=== PATIENT | male | born 1965 | race Hispanic/Latino ===

== ENCOUNTER → 2018-07-29 | Day surgery (SDC) | payer OTHER ==
[~2018-07-29] MED LIST: ASPIR 8181 MG PO; FENTANYL CITRATE/PF 100MCG/2 ML INJ ONE; LIDOCAINE HCL 2% LOCAL INJ 5 ML SDV VIAL INJ ONE; LISINOPRIL2.5 MG PO; METAMUCIL FIBE3.4 GM PO; MIDAZOLAM HCL 2 MG/2 ML VIAL ONE; PROPOFOL IV EMULSION 10 MG/ML 50 ML VIAL ONE
--- OUTSIDE RECORDS SUMMARY | 2018-07-29 06:39 | XMS REPORT | Summary of Care ---
Author Author Teofilo Love M.A. Organization Unknown Address [facility] Phone Unavailable Care Team Providers Care Human Resource Analyst Name Role Phone Teofilo Love M.A. Unavailable Unavailable YEH D.JESSE Dean Unavailable Unavailable Unavailable Unavailable Functional Status Name Dates Details Functional status health issues are not documented Status: Name Dates Details Cognitive status health issues are not documented Status: Problems Name Dates Details Psoriasis (696.1, L40.9) Status: Active Arthralgia of multiple sites (719.49, M25.50) Status: Active Medications Name Dates Details Lisinopril 5 MG Oral Tablet TAKE 1 TABLET DAILY. * Start : 10-Mar-2018 Active 30 Tablet Bottle Aspirin 81 MG Oral Tablet Delayed Release TAKE 1 TABLET DAILY. * Refills: 0 * Start : 10-Mar-2018 Active Betamethasone Dipropionate 0.05 % External Lotion APPLY SPARINGLY TO AFFECTED AREA(S) TWICE DAILY * Quantity: 1 Refills: 3 YEH D.O., MIGNON-AUNDREA * Start : 10-Mar-2018 Active 60 ML Bottle Allergies and Adverse Reactions Name Dates Details No Known Allergies (Allergy) Status: Active Past Medical History Name Dates Details History of hypertension (V12.59, Z86.79) Status: Resolved Procedures Procedure Dates Details XRAY Hand AP lateral oblique Bilateral [id number] Date: 10-Mar-2018 History of Kidney surgery Completed History of Shoulder surgery Completed History of Knee replacement Completed Immunization Name Dates Details Immunizations not documented Family History Name Dates Details Family history of hypertension (V17.49, Z82.49) Status: Active Name Dates Details Family history of Alzheimer's disease (V17.2, Z82.0) Status: Active Social History Name Dates Details - Status: Name Dates Details Former smoker Vital Signs Date Test Result Details [id number] BP Systolic 121 mm[Hg] Status: Comments: Location: LUE; Position: Sitting BP Diastolic 78 mm[Hg] Status: Comments: Location: LUE; Position: Sitting Height 65 in Status: Weight 255 lb Status: Body Mass Index Calculated 42.43 kg/m2 Status: Body Surface Area Calculated 2.19 m2 Status: Temperature 97.8 f Status: Comments: Method: Temporal Respiration Rate 16 /min Status: Heart Rate 77 /min Status: :16 Physical Findings 4 Status: Comments: PHQ-9 Adult Depression Screening Results Date Description Value Details :05 [[facility]] CBC (INCLUDES DIFF/PLT) WBC 8.4 {K/CMM} Range: 3.7-10.4 RBC 5.06 {M/CMM} Range: 4.70-6.10 Hgb 15.0 g/dl Range: 14.0-18.0 Hct 43.2 % Range: 42.0-54.0 MCV 85.5 fL Range: 80.0-94.0 MCH 29.6 pg Range: 27.0-31.0 MCHC 34.7 g/dl Range: 32.0-36.0 RDW 13.6 % Range: 11.5-14.5 Platelet 302 {K/CMM} Range: 133-450 Mean Platelet Volume 8.8 fL Range: 7.4-10.4 :05 [QL] CMP W/EGFR Sodium Level 138 {mEq/l} Range: 135-145 Potassium Level 4.7 {mEq/l} Range: 3.5-5.1 Chloride Level 103 {mEq/l} Range: 95-109 Carbon Dioxide 26 {mEq/l} Range: 24-32 AGAP 13.7 {mEq/l} Range: 10.0-20.0 Glucose Lvl 102 mg/dl (Above high threshold) Range: 70-99 Comments: Adult reference range values reflect the clinical guidelinesof the [place] [employer]. Creatinine Lvl 0.90 mg/dl Range: 0.50-1.40 Blood Urea Nitrogen 16 mg/dl Range: 7-22 BUN/Creatinine Ratio 18 Range: 6-25 Total Protein 7.4 g/dl Range: 6.4-8.4 Albumin Lvl 3.7 g/dl Range: 3.5-5.0 Globulin 3.7 g/dl Range: 2.7-4.2 A/G Ratio 1.0 Range: 0.7-1.6 Calcium Level Total 9.1 mg/dl Range: 8.5-10.5 ALT 44 u/l Range: 0-65 AST 24 u/l Range: 0-37 Alk Phos 119 u/l Range: 39-136 Bili Total 0.3 mg/dl Range: 0.2-1.3 eGFR 99 {ML/MIN/1.7} Comments: The eGFR is calculated using the CKD-EPI formula. In most young, healthyindividuals the eGFR will be >90 mL/min/1.73m2. The eGFR declines with age. AneGFR of 60-89 may be normal in some populations, particularly the elderly, forwhom the CKD-EPI formula has not been extensively validated. Use of the eGFR isnot recommended in the following populations:Individuals with unstable creatinine concentrations, including patients and those with serious co-morbid conditions.Patients with extremes in muscle mass or diet.The data above are obtained from the National Kidney Disease Education Program(NKDEP) which additionally recommends that when the eGFR is used in patientswith extremes of body mass index for purposes of drug dosing, the eGFR shouldbe multiplied by the estimated BMI. [QL] TSH, 3RD GENERATION W/REFLEX TO FT4 TSH 1.260 {uIU/ml} Range: 0.360-3.740 [QL] C-REACTIVE PROTEIN CRP 4.6 mg/L (Above high threshold) Range: <=2.9 [H] LIPID PANEL WITH REFLEX TO DIRECT LDL Chol 219 mg/dl (Above high threshold) Range: <=199 Trig 130 mg/dl Range: <=149 HDL Cholesterol 42 mg/dl (Below low threshold) Range: >=61 CHD Risk 5.21 Range: 4.00-7.30 LDL 151 mg/dl (Above high threshold) Range: <=99 VLDL 26 [QL] SED RATE BY MODIFIED [place]GR[place] Sedimentation Rate 8 {mm/hr} Range: 0-15 [QL] Differential Segmented Neutrophils 52.4 % Range: 45.0-75.0 Monocytes 7.4 % Range: 2.0-12.0 Lymphocytes 32.8 % Range: 20.0-40.0 Eosinophils 6.4 % (Above high threshold) Range: 0.0-4.0 Basophils 1.0 % Range: 0.0-1.0 Segs-Bands # 4.4 {K/CMM} Range: 1.5-8.1 Lymphocytes # 2.7 {K/CMM} Range: 1.0-5.5 Monocytes # 0.6 {K/CMM} Range: 0.0-0.8 Eosinophils # 0.5 {K/CMM} Range: 0.0-0.5 Basophils # 0.1 {K/CMM} Range: 0.0-0.2 RBC Morphology Normal Plt Morphology Normal [id number] [[facility]] JAM PANEL, COMPREHENSIVE Antinuclear Antibody Screen Negative Range: Negative Comments: Because the JAM was Negative, the Reflex assays for Anti-dsDNA, SM/PRIMARY [employer] TEACHER, [place] (SSA/SSB) were not performed. Plan of Care Name Dates Details Planned Observations Planned Goals not documented Instructions Name Dates Details Instructions not documented Encounters Appointment; JESSE FERREIRA D.O. Encounter Diagnosis: Problem not documented On: 10-Mar-2018 9:30
[2018-07-29 12:54] VITALS: BP 114/75
== END | disposition home or self-care (01) ==
LOC: OR 06:32
PROVIDERS: ATTEND Internal Medicine Gastroenterology
DX: Z12.11 Encounter for screening for malignant neoplasm of colon (principal); D12.3 Benign neoplasm of transverse colon; K57.30 Diverticulosis of large intestine without perforation or abscess without bleeding; K64.8 Other hemorrhoids; K62.9 Disease of anus and rectum, unspecified; G47.33 Obstructive sleep apnea (adult) (pediatric); I10 Essential (primary) hypertension; R12 Heartburn; R06.09 Other forms of dyspnea; E78.00 Pure hypercholesterolemia, unspecified; E74.39 Other disorders of intestinal carbohydrate absorption; E66.01 Morbid (severe) obesity due to excess calories; Z01.810 Encounter for preprocedural cardiovascular examination; Z79.82 Long term (current) use of aspirin; Z68.39 Body mass index [BMI] 39.0-39.9, adult
CPT/HCPCS: 45385; 93005; J2001; J2250; J2704; 45378

== ENCOUNTER 2018-11-03 11:05 | Emergency (ER) | payer OTHER ==
[~2018-11-03] VITALS: Ht 165.1 cm; Wt 111.1 kg
[~2018-11-03 11:05] MED LIST changes: -FENTANYL CITRATE/PF 100MCG/2 ML INJ ONE; -LIDOCAINE HCL 2% LOCAL INJ 5 ML SDV VIAL INJ ONE; -MIDAZOLAM HCL 2 MG/2 ML VIAL ONE; -PROPOFOL IV EMULSION 10 MG/ML 50 ML VIAL ONE
--- OUTSIDE RECORDS SUMMARY | 2018-11-03 11:07 | XMS REPORT | Summary of Care ---
Author Author Shaylee Garcia M.A. Organization Unknown Address [facility] Phone Unavailable Care Team Providers Care Flight Instructor Name Role Phone Shaylee Garcia M.A. Unavailable Unavailable JESSE FERREIRA D.O. Unavailable Unavailable Unavailable Unavailable Functional Status Name [...] TWICE DAILY * Quantity: 1 Refills: 3 JESSE FERREIRA D.O. * Start : 10-Mar-2018 Active 60 ML Bottle Allergies and Adverse Reactions Name Dates Details No Known Allergies (Allergy) Status: Active Past Medical History Name Dates Details History of hypertension (V12.59, Z86.79) Status: Resolved Procedures Procedure Dates Details History of Kidney surgery Completed History of [...] smoker Vital Signs Date Test Result Details No Known Vitals to report Results Date Description Value Details Results not documented Plan of Care Name Dates Details Planned Observations Planned Goals not documented Instructions Name Dates Details Instructions not documented Encounters Appointment; JESSE FERREIRA D.O. Encounter Diagnosis: Problem not documented On: 10-Mar-2018 9:30
[2018-11-03] MEDS ORDERED: CYCLOBENZAPRINE HCL 10 MG TAB PO NR (12:00)
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
[2018-11-03 15:03] VITALS: BP 151/82
[2018-11-03] MEDS ORDERED: CYCLOBENZAPRINE HCL 10 MG TAB ONE (15:10)
[2018-11-03] MEDS ORDERED: IBUPROFEN 600 MG TAB PO STA (15:10)
[2018-11-03] MEDS ORDERED: IBUPROFEN 600 MG TAB ONE (15:11)
[2018-11-03] MEDS ORDERED: IBUPROFEN 600 MG TAB PO ONE (15:15)
[2018-11-03] MEDS ORDERED: CYCLOBENZAPRINE HCL 10 MG TAB PO ONE (15:15)
== END 2018-11-03 15:21 | disposition home or self-care (01) ==
LOC: ER 11:05
DX: S06.0X0A Concussion without loss of consciousness, initial encounter (principal); S00.83XA Contusion of other part of head, initial encounter; S16.1XXA Strain of muscle, fascia and tendon at neck level, initial encounter; V53.5XXA Driver of pick-up truck or van injured in collision with car, pick-up truck or van in traffic accident, initial encounter; Y92.488 Other paved roadways as the place of occurrence of the external cause; I10 Essential (primary) hypertension
CPT/HCPCS: 70450; 72125; 99284

== ENCOUNTER → 2024-08-05 | Outpatient (REF) | payer OTHER ==
[~2024-08-05] MED LIST changes: +IOPAMIDOL 370 MG/ML 100 ML INFUS..BTL INJ ONE
[2024-08-05 14:11] LABS: CREATININE, SERUM 0.77 mg/dL (0.72-1.25)
== END ==
LOC: CT 13:30
PROVIDERS: ATTEND Family Medicine
DX: K40.90 Unilateral inguinal hernia, without obstruction or gangrene, not specified as recurrent (principal)
CPT/HCPCS: 36415; 74177; 82565; 84520; Q9967

== ENCOUNTER → 2024-10-07 | Day surgery (SDC) | payer OTHER ==
[2024-10-05 09:34] LABS: BASOPHILS # (AUTO) 0.1 (0.0-0.1); BASOPHILS % 0.8 % (0.0-1.0); EOSINOPHILS # (AUTO) 0.6 (0.0-0.4); HEMATOCRIT 43.9 % (38.2-49.6); LYMPHOCYTES # (AUTO) 2.8 (1.0-3.2); LYMPHOCYTES % 30.2 % (18.0-39.1); MEAN CORPUSCULAR HEMOGLOBIN 29.6 pg (28-32); MEAN CORPUSCULAR HGB CONC 34.2 g/dL (31-35); MEAN CORPUSCULAR VOLUME 86.6 fL (81-99); MONOCYTES # (AUTO) 0.6 (0.2-0.8); MONOCYTES % 6.8 % (4.4-11.3); NEUTROPHILS # (AUTO) 5.1 (2.1-6.9); NEUTROPHILS % 55.7 % (38.7-80.0); PLATELET COUNT 273 x10e3/uL (140-360); RED BLOOD COUNT 5.07 x10e6/uL (4.3-5.7); RED CELL DISTRIBUTION WIDTH 13.6 % (11.7-14.4); WHITE BLOOD COUNT 9.21 x10e3/uL (4.8-10.8)
[2024-10-05 09:58] LABS: ANION GAP 13.7 mmol/L (8-16); CALCIUM 9.2 mg/dL (8.4-10.2); CREATININE, SERUM 0.84 mg/dL (0.72-1.25); POTASSIUM 4.7 mmol/L (3.5-5.1)
[~2024-10-07] MED LIST changes: +DEXAMETHASONE SOD PHOS INJ 4 MG/ML SDV ONE; +FENTANYL CITRATE/PF 100MCG/2 ML INJ ONE; +GLYCOPYRROLATE INJ 0.2 MG/ML VIAL ONE; -IOPAMIDOL 370 MG/ML 100 ML INFUS..BTL INJ ONE; +KETOROLAC TROMETHAMINE 30 MG/ML VIAL ONE; +LIDOCAINE HCL 2% LOCAL INJ 5 ML SDV VIAL INJ ONE; +METFORMIN HCL500 MG PO; +MIDAZOLAM HCL 2 MG/2 ML VIAL ONE; +MOUNJARO10 MG/0.5 SQ; +ONDANSETRON HCL INJ 2MG/ML 2ML 2 MG/ML VIAL ONE; +PROPOFOL IV EMULSION 10 MG/ML 20 ML VIAL ONE; +ROCURONIUM BROMIDE 1 ML IV ONE; +SEVOFLURANE INHAL SOLN 250 ML PEN BTL ONE; +SIMVASTATIN40 MG PO; +SUGAMMADEX SODIUM 200 MG/2 ML VIAL IV ONE; +ULTRAM 50MG50 MG PO
[2024-10-07] MEDS: LACTATED RINGER'S 1,000 ML ONE (07:03)
[2024-10-07 12:00] VITALS: BP 115/69; PULSE 86; RESP 16; O2SAT 96
== END | disposition home or self-care (01) ==
LOC: OR 06:28
PROVIDERS: ATTEND Surgery
DX: K40.90 Unilateral inguinal hernia, without obstruction or gangrene, not specified as recurrent (principal); G47.33 Obstructive sleep apnea (adult) (pediatric); E11.9 Type 2 diabetes mellitus without complications; D17.6 Benign lipomatous neoplasm of spermatic cord; I10 Essential (primary) hypertension; E78.5 Hyperlipidemia, unspecified; E66.9 Obesity, unspecified; Z01.810 Encounter for preprocedural cardiovascular examination; Z01.812 Encounter for preprocedural laboratory examination; Z79.84 Long term (current) use of oral hypoglycemic drugs; Z79.85 Long-term (current) use of injectable non-insulin antidiabetic drugs; Z79.899 Other long term (current) drug therapy
CPT/HCPCS: 36415 ×2; 49505; 80048; 82948; 85025; 93005; C1781; J1100; J1885; J2003; J2250; J2405; J2704; J3010; J7121

== ENCOUNTER 2024-10-23 12:53 | Emergency (ER) | payer OTHER ==
[~2024-10-23] VITALS: Ht 165.1 cm; Wt 104.3 kg
[~2024-10-23 12:53] MED LIST changes: -DEXAMETHASONE SOD PHOS INJ 4 MG/ML SDV ONE; -FENTANYL CITRATE/PF 100MCG/2 ML INJ ONE; -GLYCOPYRROLATE INJ 0.2 MG/ML VIAL ONE; -KETOROLAC TROMETHAMINE 30 MG/ML VIAL ONE; -LIDOCAINE HCL 2% LOCAL INJ 5 ML SDV VIAL INJ ONE; -MIDAZOLAM HCL 2 MG/2 ML VIAL ONE; -ONDANSETRON HCL INJ 2MG/ML 2ML 2 MG/ML VIAL ONE; -PROPOFOL IV EMULSION 10 MG/ML 20 ML VIAL ONE; -ROCURONIUM BROMIDE 1 ML IV ONE; -SEVOFLURANE INHAL SOLN 250 ML PEN BTL ONE; -SUGAMMADEX SODIUM 200 MG/2 ML VIAL IV ONE; -ULTRAM 50MG50 MG PO
[2024-10-23 14:27] LABS: BASOPHILS # (AUTO) 0.1 (0.0-0.1); BASOPHILS % 0.8 % (0.0-1.0); EOSINOPHILS # (AUTO) 0.5 (0.0-0.4); EOSINOPHILS % 5.1 % (0.0-6.0); HEMATOCRIT 38.7 % (38.2-49.6); HEMOGLOBIN 13.2 g/dL (14.0-18.0); MEAN CORPUSCULAR HEMOGLOBIN 29.1 pg (28-32); MEAN CORPUSCULAR HGB CONC 34.1 g/dL (31-35); MEAN CORPUSCULAR VOLUME 85.4 fL (81-99); MONOCYTES # (AUTO) 0.6 (0.2-0.8); MONOCYTES % 6.3 % (4.4-11.3); NEUTROPHILS % 54.3 % (38.7-80.0); PLATELET COUNT 295 x10e3/uL (140-360); RED BLOOD COUNT 4.53 x10e6/uL (4.3-5.7); RED CELL DISTRIBUTION WIDTH 13.5 % (11.7-14.4); WHITE BLOOD COUNT 9.19 x10e3/uL (4.8-10.8)
[2024-10-23 14:45] LABS: ALBUMIN 3.4 g/dL (3.5-5.0); ANION GAP 16.2 mmol/L (8-16); BILIRUBIN,TOTAL 0.3 mg/dL (0.2-1.2); CALCIUM 8.6 mg/dL (8.4-10.2); CREATININE, SERUM 0.79 mg/dL (0.72-1.25); POTASSIUM 4.2 mmol/L (3.5-5.1); TOTAL PROTEIN 6.8 g/dL (6.5-8.1)
[2024-10-23] MEDS ORDERED: IOPAMIDOL 370 MG/ML 100 ML INFUS..BTL INJ ONE (15:07)
[2024-10-23] MEDS ORDERED: ULTRAM 50MG50 MG PO (16:35)
[2024-10-23 16:56] VITALS: PULSE 65; RESP 14; TEMP 98; O2SAT 97
== END 2024-10-23 16:59 | disposition home or self-care (01) ==
LOC: ER 13:46
DX: R10.32 Left lower quadrant pain (principal); N43.3 Hydrocele, unspecified; N50.89 Other specified disorders of the male genital organs; I10 Essential (primary) hypertension
CPT/HCPCS: 36415; 74177; 76870; 80053; 85025; 93976; 99284; Q9967